=== PATIENT | male | born 1960 | race Caucasian/White ===

== ENCOUNTER 2020-12-03 12:53 | Emergency (ER) | payer OTHER, BC ==
[2020-12-03] MEDS ORDERED: Ibuprofen 600 MG Tab PO ONE (13:01)
[2020-12-03] MEDS ORDERED: Lidocaine 2% Viscous Solution 15 ML Cup TOP ONE (13:02)
[2020-12-03] MEDS ORDERED: Bacitracin Oint 1 GM U/D Packet TOP ONE (13:02)
[2020-12-03] MEDS ORDERED: Diphtheria,Pertussis(Acell),Tetanus Vaccine 0.5 ML Syringe IM ONE (13:12)
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
[2020-12-03] MEDS ORDERED: Sodium Chloride 0.9% 10 ML Syringe FLUSH PRN (13:43)
[2020-12-03] MEDS ORDERED: Acetaminophen 500 MG Tab PO ONE (15:08)
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
== END 2020-12-03 15:29 ==
LOC: JP.ED 12:53
DX: S72.091A Other fracture of head and neck of right femur, initial encounter for closed fracture (principal); S50.01XA Contusion of right elbow, initial encounter; S70.211A Abrasion, right hip, initial encounter; R60.0 Localized edema; I10 Essential (primary) hypertension; Z88.5 Allergy status to narcotic agent; Z23 Encounter for immunization; V29.9XXA Motorcycle rider (driver) (passenger) injured in unspecified traffic accident, initial encounter; Y93.55 Activity, bike riding
CPT/HCPCS: 73502; 90471; 90715; 99284; A9270; 99285